=== PATIENT | female | born 1985 | race African-American/Black ===

== ENCOUNTER 2018-01-12 12:43 | Emergency (ER) | payer MEDICAID ==
[~2018-01-12] VITALS: Ht 170.2 cm; Wt 97.7 kg
[~2018-01-12 12:43] MED LIST: CIPR500T4 PO; DIFL150T PO
[2018-01-12 12:51] VITALS: BP 127/58; PULSE 85; RESP 18; TEMP 98.5; O2SAT 99
[2018-01-12 13:53] LABS: AUTOMATED NEUTROPHIL # 3.3 TH/MM3 (1.8-7.7); BASOPHIL % 0.5 % (0.0-2.0); EOSINOPHIL # 0.1 TH/MM3 (0-0.4); EOSINOPHIL % 2.1 % (0.0-4.0); HEMOGLOBIN 13.2 GM/DL (11.6-15.3); LYMPH % 40.6 % (9.0-44.0); LYMPHOCYTE # 2.6 TH/MM3 (1.0-4.8); MEAN CELL VOLUME 92.1 FL (80.0-100.0); MEAN CORPUSCULAR HEMOGLOBIN 31.3 PG (27.0-34.0); MEAN CORPUSCULAR HGB CONC 33.9 % (32.0-36.0); MEAN PLATELET VOLUME 9.1 FL (7.0-11.0); MONO % 6.5 % (0.0-8.0); MONOCYTE # 0.4 TH/MM3 (0-0.9); NEUT % 50.3 % (16.0-70.0); PLATELET COUNT 233 TH/MM3 (150-450); RED BLOOD COUNT 4.24 MIL/MM3 (4.00-5.30); RED CELL DISTRIBUTION WIDTH 14.3 % (11.6-17.2); WHITE BLOOD COUNT 6.5 TH/MM3 (4.0-11.0)
[2018-01-12 14:13] LABS: BACTERIA, URINE RARE /hpf; BILIRUBIN, URINE NEG (NEG); BLOOD, URINE NEG (NEG); GLUCOSE,URINE NEG (NEG); KETONE, URINE NEG (NEG); MUCUS URINE FEW /lpf (OCC); NITRITE,URINE NEG (NEG); PH, URINE 6.5 (5.0-8.5); SQUAMOUS EPITHELIAL CELL URINE 1 /hpf (0-5); URINE COLOR YELLOW (YELLW/STRAW); URINE LEUKOCYTE ESTERASE NEG (NEG)
[2018-01-12 14:25] LABS: ALKALINE PHOSPHATASE 74 U/L (45-117); ALT (GPT) 21 U/L (10-53); TOTAL BILIRUBIN ADULT 0.2 MG/DL (0.2-1.0); TOTAL PROTEIN 7.6 GM/DL (6.4-8.2); TROPONIN I LESS THAN 0.02 NG/ML (0.02-0.05)
[2018-01-12 14:30] LABS: ALBUMIN 3.4 GM/DL (3.4-5.0); AST (GOT) 17 U/L (15-37); BICARBONATE 25.6 MEQ/L (21.0-32.0); BLOOD UREA NITROGEN 13 MG/DL (7-18); CALCIUM 8.5 MG/DL (8.5-10.1); CHLORIDE 108 MEQ/L (98-107); CREATININE 0.82 MG/DL (0.50-1.00); GLOMERULAR FILTRATION RATE 97 ML/MIN (>89); GLUCOSE,RANDOM 102 MG/DL (74-106); MAGNESIUM 1.7 MG/DL (1.5-2.5); SODIUM (NA) 139 MEQ/L (136-145)
[2018-01-12] MEDS ORDERED: IBUP-232 PO (15:04)
[2018-01-12] MEDS ORDERED: ZOFR4TAB3 SL (15:06)
--- NOTE | 2018-01-12 15:06 | PD ---
HPI Chief Complaint: Dizziness Time Seen by Provider: 14:54 Travel History International Travel<30 days: No Contact w/Intl Traveler<30days: No Traveled to known affect area: No History of Present Illness HPI 32-year-old female arrives complaining of stomachache, vomiting intermittently in a headache which he believes is due to sinusitis. The patient reports last menstruation was about 2 weeks ago and was normal. There has been no vaginal bleeding or discharge. No fever. Discomfort is described as a tightness in the suprapubic abdomen. The patient reported to the triage service that she had dizziness which was similar prior episodes however does not mention dizziness to me. PFSH Past Medical History Diminished Hearing: No ?: Not LMP: 12/26/2017 : 3 Para: 3 Miscarriage: 0 : 0 Tubal Ligation: Yes Past Surgical History Gynecologic Surgery: Yes Social History Alcohol Use: Yes (occ.) Tobacco Use: Yes Substance Use: No Allergies-Medications (Allergen,Severity, Reaction): Coded Allergies: No Known Allergies (Verified , 04/14/15) Reported Meds & Prescriptions Reported Meds & Active Scripts Active Zofran Odt (Ondansetron Odt) 4 Mg Tab 4 Mg SL Q8HR PRN Ibuprofen 600 Mg Tab 600 Mg PO Q8HR PRN Diflucan 150 mg (Fluconazole) 150 Mg Tab 150 Mg PO DIRECTED PRN Cipro (Ciprofloxacin HCl) 500 Mg Tab 500 Mg PO BID 7 Days Review of Systems Except as stated in HPI: all other systems reviewed are Neg General / Constitutional: No: Fever Eyes: No: Diploplia HENT: No: Rhinitis Physical Exam Narrative GENERAL: 32-year-old female pleasant well-nourished well-developed Vital Signs Date Time Temp Pulse Resp B/P (MAP) Pulse Ox O2 Delivery O2 Flow Rate FiO2 01/12/18 12:51 98.5 85 18 127/58 (81) 99 SKIN: Warm and dry. HEAD: Atraumatic. Normocephalic. EYES: Pupils equal and round. No scleral icterus. No injection or drainage. ENT: No nasal bleeding or discharge. Mucous membranes pink and moist. NECK: Trachea midline. No JVD. CARDIOVASCULAR: Regular rate and rhythm. RESPIRATORY: Abdomen is soft. There is minimal tenderness to deep palpation in the suprapubic abdomen. No tenderness at McBurney's point. GASTROINTESTINAL: Abdomen soft, non-tender, nondistended. Hepatic and splenic margins not palpable. MUSCULOSKELETAL: Extremities without clubbing, cyanosis, or edema. No obvious deformities. NEUROLOGICAL: Awake and alert. No obvious cranial nerve deficits. Motor grossly within normal limits. Five out of 5 muscle strength in the arms and legs. Normal speech. PSYCHIATRIC: Appropriate mood and affect; insight and judgment normal. Data Data Last Documented VS Vital Signs Date Time Temp Pulse Resp B/P (MAP) Pulse Ox O2 Delivery O2 Flow Rate FiO2 01/12/18 12:51 98.5 85 18 127/58 (81) 99 Orders Orders Electrocardiogram (01/12/18 12:53) Ed Urine Pregnancytest Poc (01/12/18 12:53) Complete Blood Count With Diff (01/12/18 12:53) Comprehensive Metabolic Panel (01/12/18 12:53) Magnesium (Mg) (01/12/18 12:53) Ckmb (Isoenzyme) Profile (01/12/18 12:53) Troponin I (01/12/18 12:53) Urinalysis - C+S If Indicated (01/12/18 12:53) CKMB (01/12/18 13:25) CKMB% (01/12/18 13:25) Ibuprofen (Motrin) (01/12/18 15:15) Ondansetron Odt (Zofran Odt) (01/12/18 15:15) Ed Discharge Order (01/12/18 15:11) Labs Laboratory Tests Test 01/12/18 13:25 White Blood Count 6.5 TH/MM3 Red Blood Count 4.24 MIL/MM3 Hemoglobin 13.2 GM/DL Hematocrit 39.0 % Mean Corpuscular Volume 92.1 FL Mean Corpuscular Hemoglobin 31.3 PG Mean Corpuscular Hemoglobin Concent 33.9 % Red Cell Distribution Width 14.3 % Platelet Count 233 TH/MM3 Mean Platelet Volume 9.1 FL Neutrophils (%) (Auto) 50.3 % Lymphocytes (%) (Auto) 40.6 % Monocytes (%) (Auto) 6.5 % Eosinophils (%) (Auto) 2.1 % Basophils (%) (Auto) 0.5 % Neutrophils # (Auto) 3.3 TH/MM3 Lymphocytes # (Auto) 2.6 TH/MM3 Monocytes # (Auto) 0.4 TH/MM3 Eosinophils # (Auto) 0.1 TH/MM3 Basophils # (Auto) 0.0 TH/MM3 CBC Comment DIFF FINAL Differential Comment Urine Color YELLOW Urine Turbidity CLEAR Urine pH 6.5 Urine Specific [place] 1.029 Urine Protein TRACE mg/dL Urine Glucose (UA) NEG mg/dL Urine Ketones NEG mg/dL Urine Occult Blood NEG Urine Nitrite NEG Urine Bilirubin NEG Urine Urobilinogen LESS THAN 2.0 MG/DL Urine Leukocyte Esterase NEG Urine RBC LESS THAN 1 /hpf Urine WBC LESS THAN 1 /hpf Urine Squamous Epithelial Cells 1 /hpf Urine Bacteria RARE /hpf Urine Mucus FEW /lpf Microscopic Urinalysis Comment CULT NOT INDICATED Blood Urea Nitrogen 13 MG/DL Creatinine 0.82 MG/DL Random Glucose 102 MG/DL Total Protein 7.6 GM/DL Albumin 3.4 GM/DL Calcium Level 8.5 MG/DL Magnesium Level 1.7 MG/DL Alkaline Phosphatase 74 U/L Aspartate Amino Transf (AST/SGOT) 17 U/L Alanine Aminotransferase (ALT/SGPT) 21 U/L Total Bilirubin 0.2 MG/DL Sodium Level 139 MEQ/L Potassium Level 4.0 MEQ/L Chloride Level 108 MEQ/L Carbon Dioxide Level 25.6 MEQ/L Anion Gap 5 MEQ/L Estimat Glomerular Filtration Rate 97 ML/MIN Total Creatine Kinase 259 U/L Creatine Kinase MB 4.4 NG/ML Creatine Kinase MB % 1.7 % Troponin I LESS THAN 0.02 NG/ML [facility] Medical Decision Making Medical Screen Exam Complete: Yes Emergency Medical Condition: Yes Medical Record Reviewed: Yes Differential Diagnosis Constipation, Gastritis, Acute Cholecystitis, Biliary Colic, Pancreatitis, NUÑEZ , Hepatitis, Bowel Obstruction, Cystitis, Mesenteric Ischemia, AAA, Appendicitis , Renal Stone/Hydronephrosis, GERD, perforated viscous Narrative Course CBC & BMP Diagram 01/12/18 13:25 Total Protein 7.6, Albumin 3.4, Calcium Level 8.5, Magnesium Level 1.7, Alkaline Phosphatase 74, Aspartate Amino Transf (AST/SGOT) 17, Alanine Aminotransferase (ALT/SGPT) 21, Total Bilirubin 0.2 Tn < 0.02 UA: No UTI Patient Patient reports normal oral intake hour after eating vomiting occurs. In this scenario appendicitis is considered less likely as his torsion acute surgical disease otherwise. Zofran prescription. Work note provided per patient's request. Diagnosis Primary Impression: Vomiting Qualified Codes: R11.2 - Nausea with vomiting, unspecified Additional Impressions: Abdominal pain Qualified Codes: R10.9 - Unspecified abdominal pain Headache Qualified Codes: R51 - Headache Referrals: Primary Care Physician Med/Other Pt SpecificInfo: Prescription(s) given Scripts Ondansetron Odt (Zofran Odt) 4 Mg Tab 4 MG SL Q8HR Y for Nausea/Vomiting, #12 TAB 0 Refills Prov: Connor Workman MD 01/12/18 Ibuprofen (Ibuprofen) 600 Mg Tab 600 MG PO Q8HR Y for PAIN, #20 TAB 0 Refills Prov: Connor Workman MD 01/12/18 Disposition: 01 DISCHARGE HOME Condition: Stable Connor Workman MD Jan 12, 2018 15:06
[2018-01-12] MEDS ORDERED: ONDANSETRON ODT 4 MG TAB PO ONE (15:15)
[2018-01-12] MEDS ORDERED: IBUPROFEN 600 MG TAB PO ONE (15:15)
--- NOTE | 2018-01-13 13:19 | EKG ---
Date Performed: 01/12/2018 Time Performed: 13:30:42 PTAGE: 32 years EKG: Sinus rhythm WITH SINUS ARRHYTHMIA NORMAL ECG PREVIOUS TRACING : 02/25/2009 14.23 DOCTOR: Gilbert Meza Interpretating Date/Time 01/13/2018 13:18:42
== END 2018-01-12 15:45 | disposition home or self-care (01) ==
LOC: NEPD 12:43
DX: R11.2 Nausea with vomiting, unspecified (principal); R10.9 Unspecified abdominal pain; R51 Headache; I49.8 Other specified cardiac arrhythmias; Z72.0 Tobacco use
CPT/HCPCS: 80053; 81001; 82550; 82552; 83735; 84484; 84703; 85025; 93005